=== PATIENT | female | born 1950 | race Caucasian/White ===

== ENCOUNTER 2021-10-18 14:55 | Emergency (ER) | payer MEDICARE ==
[~2021-10-18] VITALS: Ht 157.5 cm; Wt 95.3 kg
[2021-10-18] MEDS ORDERED: ASPIRIN CHEWABL81 MG PO (21:00)
== END 2021-10-18 21:07 | disposition home or self-care (01) ==
LOC: ER1 14:55
DX: U07.1 COVID-19 (principal); Z23 Encounter for immunization; E11.9 Type 2 diabetes mellitus without complications
CPT/HCPCS: 99282; M0245